=== PATIENT | female | born 1970 | race Caucasian/White ===

== ENCOUNTER 2022-11-23 08:45 | Outpatient (CLI) | payer OTHER, SELFPAY | END 2022-11-23 08:46 | disposition home or self-care (01) | LOC: NFLDREF 11-24 10:05 | PROVIDERS: PCP Emergency Medicine; Referring Provider Emergency Medicine; Visit Provider Emergency Medicine | DX: Z00.00 Encounter for general adult medical examination without abnormal findings (principal); R03.0 Elevated blood-pressure reading, without diagnosis of hypertension; E03.9 Hypothyroidism, unspecified; Z13.6 Encounter for screening for cardiovascular disorders | CPT/HCPCS: 80048; 80061 ==

== ENCOUNTER 2023-02-11 15:10 | Outpatient (CLI) | payer OTHER, SELFPAY ==
--- NOTE | 2023-02-11 15:20 | CRLHL7_ITS ---
For Patients: As a result of the Century Cures Act, medical imaging exams and procedure reports are released immediately into your electronic medical record. You may view this report before your referring provider. If you have questions, please contact your health care provider. BILATERAL SCREENING MAMMOGRAM WITH COMPUTER-AIDED DETECTION TECHNIQUE: CC, MLO and Implant displaced views were obtained. These mammographic images have been obtained using full-field digital technique. These mammographic images were interpreted with the benefit of computer-aided detection. COMPARISON FILM: 08/02/20, 01/20/14. FINDINGS: The breasts are heterogeneously dense, which may obscure small masses IMPRESSION: There is no radiographic evidence for malignancy. ASSESSMENT: BI-RADS Category 2: Benign RECOMMENDATION: Routine screening mammogram in 1 year. A lay language report of this examination will be provided to the patient. George Tong M.D. Diagnostic Radiologist [email or web address] LUCÍA/Dictated by: George Tong MD @ 02/12/2023 12:13:00 PM (Electronically Signed)
== END 2023-02-11 15:11 | disposition home or self-care (01) ==
LOC: MAMMO 15:12
PROVIDERS: PCP Emergency Medicine; Visit Provider Emergency Medicine
DX: Z12.31 Encounter for screening mammogram for malignant neoplasm of breast (principal); R92.2 Inconclusive mammogram
CPT/HCPCS: 77067

== ENCOUNTER 2023-11-28 08:34 | Outpatient (CLI) | payer OTHER, SELFPAY | END 2023-11-28 08:35 | disposition home or self-care (01) | PROVIDERS: PCP Emergency Medicine; Visit Provider Emergency Medicine | DX: E78.5 Hyperlipidemia, unspecified (principal); Z83.49 Family history of other endocrine, nutritional and metabolic diseases; Z13.1 Encounter for screening for diabetes mellitus; Z13.21 Encounter for screening for nutritional disorder | CPT/HCPCS: 80061; 82607; 82947 ==

== ENCOUNTER 2024-05-11 13:13 | Outpatient (CLI) | payer OTHER, SELFPAY ==
--- NOTE | 2024-05-11 13:20 | CRLHL7_ITS ---
For Patients: As a result of the Century Cures Act, medical imaging exams and procedure reports are released immediately into your electronic medical record. You may view this report before your referring provider. If you have questions, please contact your health care provider. BILATERAL SCREENING MAMMOGRAM WITH COMPUTER-AIDED DETECTION WITH COMPUTER-AIDED DETECTION AND TOMOSYNTHESIS TECHNIQUE: CC, MLO and Implant displaced views were obtained. These mammographic images have been obtained using full-field digital technique. These mammographic images were interpreted with the benefit of computer-aided detection. Breast Tomosynthesis was used in this interpretation. COMPARISON FILM: 02/11/23, 08/02/20, 01/20/14 FINDINGS: There are scattered areas of fibroglandular density IMPRESSION: There is no radiographic evidence for malignancy. ASSESSMENT: BI-RADS Category 2: Benign RECOMMENDATION: Routine screening mammogram in 1 year. A lay language report of this examination will be provided to the patient. George Tong M.D. Diagnostic Radiologist [email or web address] KATARZYNA/samm / bM/Dictated by: George Tong MD @ 05/12/2024 9:28:00 AM (Electronically Signed)
== END 2024-05-11 13:14 | disposition home or self-care (01) ==
LOC: MAMMO 13:13
PROVIDERS: PCP Emergency Medicine; Visit Provider Emergency Medicine
DX: Z12.31 Encounter for screening mammogram for malignant neoplasm of breast (principal)
CPT/HCPCS: 77063; 77067

== ENCOUNTER 2024-11-27 08:20 | Outpatient (CLI) | payer OTHER, SELFPAY | END 2024-11-27 08:21 | disposition home or self-care (01) | LOC: NFLDREF 11-29 06:02 | PROVIDERS: Referring Provider Emergency Medicine; Visit Provider Emergency Medicine | DX: Z00.00 Encounter for general adult medical examination without abnormal findings (principal); E78.2 Mixed hyperlipidemia; E55.9 Vitamin D deficiency, unspecified; E53.8 Deficiency of other specified B group vitamins | CPT/HCPCS: 80048; 80061; 82306; 82607 ==

== ENCOUNTER 2024-12-01 08:43 | Outpatient (CLI) | payer OTHER, SELFPAY ==
[2024-12-03 11:08] LABS: HPV Source Cervical
== END 2024-12-01 08:44 | disposition home or self-care (01) ==
PROVIDERS: Visit Provider Emergency Medicine
DX: R87.610 Atypical squamous cells of undetermined significance on cytologic smear of cervix (ASC-US) (principal); Z11.51 Encounter for screening for human papillomavirus (HPV)
CPT/HCPCS: 87624; 87625; 88141; 88142; 88175